=== PATIENT | female | born 2000 | race Caucasian/White ===

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

== ENCOUNTER 2019-01-01 20:44 | Emergency (ER) | payer OTHER ==
--- NOTE | 2019-01-01 21:06 | PDOC ---
Rapid Medical Evaluation Time Seen by Provider: 01/01/19 20:54 Medical Evaluation: Allergies Allergy/AdvReac Type Severity Reaction Status Date / Time No Known Allergies Allergy Verified 11/26/16 11:19 01/01/19 20:54 I have performed a brief in-person evaluation of this patient. The patient presents with a chief complaint of: midsternal chest pain Pertinent physical exam findings: PERC-0. Lungs CTAB. RRR. No m/r/g. I have ordered the following: ekg, urine, labs The patient will proceed to the ED for further evaluation. Discharge Disposition - Diagnosis Chest pain - Referrals - Patient Instructions - Post Discharge Activity
[2019-01-01 21:07] VITALS: BP 140/66; PULSE 91; TEMP 98.8; BMI 17.6
--- NOTE | 2019-01-01 21:31 | PDOC ---
*Physical Exam - Vital Signs Last Vital Signs Temp Pulse Resp BP Pulse Ox 98.8 F 91 H 18 140/66 100 01/01/19 21:05 01/01/19 21:05 01/01/19 21:05 01/01/19 21:05 01/01/19 21:05 ED Treatment Course - LABORATORY CBC & Chemistry Diagram: 01/01/19 23:05 01/01/19 22:12 Medical Decision Making - Medical Decision Making 01/01/19 21:31 Patient seen by the advanced practice provider under my direct supervision. Ancillary testing reviewed as necessary. I agree with plan as outlined by the advanced practice provider. *DC/Admit/Observation/Transfer Diagnosis at time of Disposition: Chest pain Qualifiers: Chest pain type: chest pain on breathing Qualified Code(s): R07.1 - Chest pain on breathing - Discharge Dispostion Disposition: HOME Condition at time of disposition: Good - Referrals - Patient Instructions Printed Discharge Instructions: DI for Atypical Chest Pain Additional Instructions: your d-dimer was elevated. your CTA chest is normal. please follow up with your PCP as soon as possible return to the ER for any worsening symptoms - Post Discharge Activity Forms/Work/School Notes: Back to Work
--- NOTE | 2019-01-01 21:36 | PDOC ---
History of Present Illness - General Chief Complaint: Chest Pain Stated Complaint: CHEST PAIN Time Seen by Provider: 01/01/19 20:54 History Source: Patient - History of Present Illness Initial Comments: 01/01/19 22:49 18-year-old female complaining of midsternal pain and pain on respiration reports feeling shortness of breath today with activity. Denies past medical history denies OCP use, recent travel, prolonged sitting. Denies nausea, vomiting, diaphoresis, abdominal pain, urinary symptoms, flank pain. Past History - Past Medical History Allergies/Adverse Reactions: Allergies Allergy/AdvReac Type Severity Reaction Status Date / Time No Known Allergies Allergy Verified 01/01/19 21:07 Home Medications: Ambulatory Orders Ciprofloxacin HCl/Dexameth [Ciprodex Otic Suspension] 3 drop AU BID #1 bottle Ibuprofen Oral Suspension [Motrin Oral Suspension -] 400 mg PO Q6H #240 ml 11/26 COPD: No - Suicide/Smoking/Psychosocial Hx Smoking History: Never smoked Have you smoked in the past 12 months: No Information on smoking cessation initiated: No Hx Alcohol Use: No Drug/Substance Use Hx: No Substance Use Type: None Review of Systems - Review of Systems Able to Perform ROS?: Yes Is the patient limited Marshallese proficient: No Constitutional: No: Symptoms Reported, See HPI, Chills, Diaphoresis, Fever, Loss of Appetite, Malaise, Night Sweats, Weakness, Weight Stable, Unintentional Wgt. Loss, Unexplained wgt Loss, Other HEENTM: No: Symptoms Reported, See HPI, Eye Pain, Blurred Vision, Tearing, Recent change in vision, Double Vision, Cataracts, Ear Pain, Ocular Prothesis, Ear Discharge, Nose Pain, Nose Congestion, Tinnitus, Nose Bleeding, Hearing Loss , Throat Pain, Throat Swelling, Mouth Pain, Dental Problems, Difficulty Swallowing, Mouth Swelling, Other Respiratory: Yes: Shortness of Breath Cardiac (ROS): Yes: Chest Pain ABD/GI: No: Symptoms Reported, See HPI, Abdominal Distended, Abd. Pain w/ defecation, Blood Streaked Bowels, Constipated, Diarrhea, Difficulty Swallowing , Nausea, Poor Appetite, Poor Fluid Intake, Rectal Bleeding, Vomiting, Indigestion, Abdominal cramping, Tarry Stools, Other *Physical Exam - Vital Signs Last Vital Signs Temp Pulse Resp BP Pulse Ox 98.8 F 91 H 18 140/66 100 01/01/19 21:05 01/01/19 21:05 01/01/19 21:05 01/01/19 21:05 01/01/19 22:57 - Physical Exam General Appearance: Yes: Appropriately Dressed Respiratory/Chest: positive: Lungs Clear, Normal Breath Sounds. negative: Chest Tender Cardiovascular: positive: Regular Rhythm, Regular Rate Gastrointestinal/Abdominal: positive: Normal Bowel Sounds, Soft. negative: Tender Extremity: positive: Normal Capillary Refill, Normal Inspection, Delayed Capillary Refill Integumentary: positive: Normal Color, Dry, Warm Neurologic: positive: packaging assembler II-XII NML intact, Fully Oriented, Alert, Normal Mood/ Affect Heart Score/ECG Review - History History: Slightly suspicious - Electrocardiogram EKG: Normal - Age Age: </= 45 - Risk Factors Based on the list above the patient has:: 1-2 risk factors - Troponin Troponin: </= normal limit - Score Heart Score - Total: 1 - ECG Intrepretation Rhythm: Regular Rhythm Comment:: 01/01/19 22:52 Sinus rhythm with short [place] ED Treatment Course - LABORATORY CBC & Chemistry Diagram: 01/01/19 23:05 01/01/19 22:12 - ADDITIONAL ORDERS Additional order review: Laboratory Results 01/01/19 01/01/19 01/01/19 22:12 22:12 22:12 PT with INR 11.20 INR 0.95 D-Dimer 2215 H Sodium 138 Potassium 4.3 Chloride 104 Carbon Dioxide 25 Anion Gap 9 BUN 13.8 Creatinine 0.6 Est GFR (CKD-EPI)AfAm 152.08 Est GFR (CKD-EPI)NonAf 131.21 Random Glucose 78 Calcium 9.3 Magnesium 2.3 Total Bilirubin 0.4 AST 16 ALT 16 Alkaline Phosphatase 96 Creatine Kinase Troponin I Total Protein 7.7 Albumin 4.3 Urine Color Urine Appearance Urine pH Ur Specific [place] Urine Protein Urine Glucose (UA) Urine Ketones Urine Blood Urine Nitrite Urine Bilirubin Urine Urobilinogen Ur Leukocyte Esterase Urine WBC (Auto) Urine RBC (Auto) Urine Casts (Auto) U Epithel Cells (Auto) Urine Bacteria (Auto) Urine HCG, Qual 01/01/19 01/01/19 01/01/19 22:12 21:50 21:50 PT with INR INR D-Dimer Sodium Potassium Chloride Carbon Dioxide Anion Gap BUN Creatinine Est GFR (CKD-EPI)AfAm Est GFR (CKD-EPI)NonAf Random Glucose Calcium Magnesium Total Bilirubin AST ALT Alkaline Phosphatase Creatine Kinase 75 Troponin I < 0.02 Total Protein Albumin Urine Color Yellow Urine Appearance Clear Urine pH 6.5 Ur Specific [place] 1.025 Urine Protein Negative Urine Glucose (UA) Negative Urine Ketones Trace H Urine Blood Negative Urine Nitrite Negative Urine Bilirubin Negative Urine Urobilinogen 0.2 Ur Leukocyte Esterase 2+ H Urine WBC (Auto) 2 Urine RBC (Auto) 2 Urine Casts (Auto) 2 U Epithel Cells (Auto) 3.7 Urine Bacteria (Auto) 44.0 Urine HCG, Qual Negative 01/01/19 01/01/19 23:05 22:12 RBC 4.61 Cancelled MCV 86.4 Cancelled MCHC 33.0 Cancelled RDW 13.8 Cancelled MPV 9.1 Cancelled Neutrophils % 52.9 Cancelled Lymphocytes % 38.5 Cancelled Monocytes % 7.2 Cancelled Eosinophils % 0.6 Cancelled Basophils % 0.8 Cancelled - RADIOLOGY Radiology Studies Ordered: Category Date Time Status CHEST CTA [CT] Stat CT Scan 01/01/19 23:12 Taken Medical Decision Making - Medical Decision Making 01/01/19 22:51 A: chest pain P: cbc cmp cardiac d-dimer: elevated CTA chest: no PE *DC/Admit/Observation/Transfer Diagnosis at time of Disposition: Chest pain Qualifiers: Chest pain type: chest pain on breathing Qualified Code(s): R07.1 - Chest pain on breathing - Discharge Dispostion Disposition: HOME - Referrals - Patient Instructions Printed Discharge Instructions: DI for Atypical Chest Pain Additional Instructions: your d-dimer was elevated. your CTA chest is normal. please follow up with your PCP as soon as possible return to the ER for any worsening symptoms - Post Discharge Activity Forms/Work/School Notes: Back to Work
[2019-01-01 22:09] LABS: EPI CELLS 3.7 /HPF (0-5/HPF); HYALINE CASTS 2 /lpf (0-8); PH,URINE 6.5 (5.0-8.0); URINE APPEARANCE CLEAR; URINE BILIRUBIN NEGATIVE (NEGATIVE); URINE COLOR YELLOW; URINE GLUCOSE (UA) NEGATIVE (NEGATIVE); URINE KETONE TRACE (NEGATIVE); URINE LEUK ESTERASE 2+ (NEGATIVE); URINE NITRITE NEGATIVE (NEGATIVE); URINE PROTEIN NEGATIVE (NEGATIVE); URINE RBC 2 /hpf (0-4); URINE UROBILINOGEN 0.2 mg/dL (0.2-1.0); URINE WBC 2 /hpf (0-5)
[2019-01-01 22:35] LABS: INR 0.95 (0.83-1.09); PROTHROMBIN TIME (PATIENT) 11.2 SEC (9.7-13.0)
[2019-01-01 22:45] LABS: ALBUMIN 4.3 g/dl (3.4-5.0); BILIRUBIN,TOTAL 0.4 mg/dL (0.2-1); BLOOD UREA NITROGEN 13.8 mg/dL (7-18); CALCIUM 9.3 mg/dL (8.5-10.1); CREATININE 0.6 mg/dL (0.55-1.3); TOT PROT 7.7 g/dl (6.4-8.2)
[2019-01-01 22:46] LABS: MAGNESIUM 2.3 mg/dL (1.8-2.4); POTASSIUM 4.3 mmol/L (3.5-5.1)
[2019-01-01 23:27] LABS: BASO % 0.8 % (0-2.0); EOS % 0.6 % (0-4.5); HEMATOCRIT 39.8 % (32.4-45.2); HEMOGLOBIN 13.1 GM/dL (10.7-15.3); LYMPH % 38.5 % (8-40); MCH 28.5 pg (25.7-33.7); MEAN CELL VOLUME 86.4 fl (80-96); MEAN PLT VOLUME 9.1 fl (7.5-11.1); MONO % 7.2 % (3.8-10.2); NEUT % 52.9 % (42.8-82.8); PLATELET COUNT 210 K/MM3 (134-434); RBC 4.61 M/mm3 (3.60-5.2); RDW 13.8 % (11.6-15.6); WHITE BLOOD COUNT 5.5 K/mm3 (4.0-10.0)
--- NOTE | 2019-01-02 14:25 | EKG ---
Test Reason : Blood Pressure : / mmHG Vent. Rate : 086 BPM Atrial Rate : 086 BPM P-R Int : 108 ms QRS Dur : 096 ms QT Int : 354 ms P-R-T Axes : 030 062 043 degrees QTc Int : 423 ms SINUS RHYTHM WITH SHORT [place] INCOMPLETE RIGHT BUNDLE BRANCH BLOCK BORDERLINE ECG NO PREVIOUS ECGS AVAILABLE Confirmed by ANITA HOPE MD ([id number]) on 01/02/2019 2:25:46 PM Referred By: Confirmed By:ANITA HOPE MD
== END 2019-01-02 01:05 | disposition home or self-care (01) ==
LOC: JERFT 20:44 → JER 20:44
DX: R07.1 Chest pain on breathing (principal)
CPT/HCPCS: 36415; 71046-TC-FY; 71275-TC; 80053; 81003; 82550; 83735; 84484; 84703; 85025; 85379; 85610; 93005; 93010; 99284-25